=== PATIENT | female | born 1980 | race Caucasian/White ===

== ENCOUNTER 2020-03-13 15:21 | Emergency (ER) | payer OTHER, SELFPAY ==
--- NOTE | 2020-03-13 15:33 | ED.URI ---
HPI - URI/Sore Throat General Chief Complaint: Upper Respiratory Infection Stated Complaint: cough,sob Time Seen by Provider: 03/13/20 15:36 Source: patient and RN notes reviewed History of Present Illness HPI Narrative: Patient is a 39-year-old female who presents the urgent care with complaints of shortness of breath and cough. Patient states it started on February 21, she received a Covid test 2 days later, which was negative. Patient states that symptoms have not been improving and the cough seems to be worsening. States it is a wet but nonproductive cough. Patient reports of chest heaviness when she lays down at night with increased wheezing. Reports of having history of pneumonia with the last episode being within the physical year. Patient denies any recent fevers, nausea, vomiting. Denies of any sore throat. 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 No other acute complaints. No acute distress noted. Patient aware of the plan of care. Some parts of this dictation were generated by voice recognition software and may contain typographical and/or grammatical inaccuracies. Related Data Home Medications Medication Instructions Recorded Confirmed levonorgestrel [Mirena] 1 device INTRAUTERINE ONCE 03/13/20 03/13/20 Allergies Allergy/AdvReac Type Severity Reaction Status Date / Time Penicillins Allergy Hives Verified 03/13/20 15:43 Review of Systems Review of Systems: Narrative: CONSTITUTIONAL: Denies fever, chills, or sweats. EYES: Denies visual changes, redness, or discharge. ENT: Denies rhinorrhea, congestion, sore throat, or otalgia. CARDIOVASCULAR: Denies chest pain, palpitations, or edema. RESPIRATORY: Reports a wet nonproductive cough with intermittent dyspnea and chest tightness GASTROINTESTINAL: Denies abdominal pain, nausea, vomiting, or diarrhea. GENITOURINARY: Denies dysuria or hematuria. SKIN: Denies rash or itching. MUSCULOSKELETAL: Denies back pain, joint pain, or myalgia. NEUROLOGIC: Denies headache, numbness, or weakness. All other systems reviewed are negative, except as documented in HPI. PMFSH Comments At the time of my signature, I reviewed and agree with the nursing past medical, surgical, social, and family history. There is no relevant family history pertinent to the patient complaint. Exam Narrative: Exam Narrative: GENERAL: This is a well-nourished, well-developed patient, in no apparent distress. HEAD: normocephalic, atraumatic. EYES: PERRL. Sclera clear/white. Vision is grossly intact. EARS: External ears normal, auditory canals clear and without drainage, TMs normal without perforation. Hearing grossly intact. NOSE: External nose normal with no obvious nasal discharge, nares without redness, no rhinorrhea. THROAT: Mucous membranes moist, posterior pharynx clear. Mild bilateral tonsillar edema which is reported normal from the patient. Mild postnasal drainage. NECK: Neck supple, non-tender without lymphadenopathy CARDIOVASCULAR: Regular rate and rhythm without murmurs, gallops, or rubs. RESPIRATORY: Coarse/crackles throughout with inspiratory and expiratory bilateral bibasilar wheezes SKIN: warm, intact with no suspicious lesions or rash, good texture and turgor. NEURO: awake, alert, and oriented to person, place and time. There were no obvious focal neurologic abnormalities. EXTREMITIES: No clubbing, cyanosis, or edema. Course Vital Signs Vital signs: Vital Signs Temperature 98.7 F 03/13/20 15:40 Pulse Rate 86 03/13/20 15:40 Respiratory Rate 20 03/13/20 15:40 Blood Pressure 142/96 H 03/13/20 15:40 Pulse Oximetry 100 03/13/20 15:40 Temperature 98.7 F 03/13/20 15:40 Pulse Rate 86 03/13/20 15:40 Respiratory Rate 20 03/13/20 15:40 Blood Pressure 142/96 H 03/13/20 15:40 Pulse Oximetry 100 03/13/20 15:40 Reviewed?patient is informed that they may have pre-hypertension or hypertension ba
[2020-03-13 15:40] VITALS: BP 142/96; PULSE 86; RESP 20; TEMP 37.1; O2SAT 100
== END 2020-03-13 15:57 | disposition home or self-care (01) ==
PROVIDERS: Emergency Provider Nurse Practitioner Family
DX: J40 Bronchitis, not specified as acute or chronic (principal); R06.2 Wheezing; Z87.01 Personal history of pneumonia (recurrent)
CPT/HCPCS: 99203; G0463

== ENCOUNTER 2021-05-20 17:04 | Emergency (ER) | payer OTHER, SELFPAY ==
[2021-05-20 17:17] VITALS: BP 148/108; PULSE 95; RESP 16; TEMP 37.4; O2SAT 100
[2021-05-20 17:35] VITALS: BP 123/90
--- NOTE | 2021-05-20 17:35 | ED.GENADULT ---
HPI - General Adult General Chief complaint: Upper Respiratory Infection Stated complaint: Sore Throat Source: patient Mode of arrival: ambulatory Limitations: no limitations History of Present Illness HPI narrative: Patient is a 40-year-old female presents to the urgent care via POV for evaluation of Covid-like symptoms that began 5 days ago. Additionally, she reports sore throat, nasal congestion, and muffled hearing. Kalpana-[place] and Cepacol lozenges provide some relief. Nothing worsens symptoms. Patient reports she is fully vaccinated against Covid. She is also received Covid booster. Denies known exposure or sick contact. Of note, pt reports testing negative for covid this past Friday. Related Data Home Medications Medication Instructions Recorded Confirmed levonorgestrel [Mirena] 1 device INTRAUTERINE ONCE 03/13/20 05/20/21 levothyroxine 25 mcg PO DAILY 05/20/21 05/20/21 sumatriptan succinate 100 mg PO PRN PRN 05/20/21 05/20/21 Allergies Allergy/AdvReac Type Severity Reaction Status Date / Time Penicillins Allergy Mild Hives Verified 05/20/21 17:10 Review of Systems Review of Systems: Denies fever, chills, sweats, change in appetite, poor p.o. intake, headaches, dizziness, LOC, sinus pain, sinus pressure, ear pain, ear drainage, cough, shortness of breath, wheezing, nausea, vomiting, diarrhea, chest pain, heart palpitations PMFSH Comments I have reviewed and agree with the patient's past medical, surgical, social, and family hx as documented by the RN. There is no relevant family history pertinent to the presenting complaint. Course Course Level of Care: Express Care Visit Vital Signs Vital signs: Vital Signs Temperature 99.3 F 05/20/21 17:17 Pulse Rate 95 05/20/21 17:17 Respiratory Rate 16 05/20/21 17:17 Blood Pressure 148/108 H 05/20/21 17:17 Pulse Oximetry 100 05/20/21 17:17 Temperature 99.3 F 05/20/21 17:17 Pulse Rate 95 05/20/21 17:17 Respiratory Rate 16 05/20/21 17:17 Blood Pressure 123/90 05/20/21 17:35 Pulse Oximetry 100 05/20/21 17:17 Due to an elevated blood pressure, I had a detailed discussion with the patient and/or guardian regarding the need for follow-up with their primary care provider within the next 3-4 days. Patient verbalized understanding and agreed. Medical Decision Making Differential Diagnosis Differential Diagnosis: Allergic rhinitis, ABRS, acute viral sinusitis, strep pharyngitis, nasopharyngitis, bronchitis, pneumonia, AOM, otitis externa, viral URI, influenza, covid-19 Medical Records Medical records reviewed: Yes I reviewed the external patient's medical records. Vital Signs Vital Signs: Vital Signs Temperature 99.3 F 05/20/21 17:17 Pulse Rate 95 05/20/21 17:17 Respiratory Rate 16 05/20/21 17:17 Blood Pressure 148/108 H 05/20/21 17:17 Pulse Oximetry 100 05/20/21 17:17 Temperature 99.3 F 05/20/21 17:17 Pulse Rate 95 05/20/21 17:17 Respiratory Rate 16 05/20/21 17:17 Blood Pressure 123/90 05/20/21 17:35 Pulse Oximetry 100 05/20/21 17:17 Lab Data Lab results reviewed: Yes I reviewed the patient's lab results. Lab results narrative: Rapid strep negative Labs: Lab Results 05/20/21 Range/Units 17:40 POC SARS CoV-2 Ag Positive (Negative) Strep Screen Presumptive Negative *(Reference Range: Negative)* Critical Care Time Critical Care Time Critical Care Time: No Discharge Plan Discharge Clinical Impression: COVID-19 Patient Disposition: Home, Self-Care Condition: Stable Instructions: COVID-19 (Coronavirus Disease 2019) (ED) Additional Instructions: See discharge instructions for detailed information. Be sure to stay home for 5 days. Wear a mask for an additional 5 days. If symptoms worsen or you develop fever continue to stay home until symptoms improve or fever resolves. Do not take [id number]
== END 2021-05-20 18:04 | disposition home or self-care (01) ==
PROVIDERS: Emergency Provider Nurse Practitioner Family
DX: U07.1 COVID-19 (principal); E03.9 Hypothyroidism, unspecified
CPT/HCPCS: 87081; 87426; 87880; 99213; C9803; G0463

== ENCOUNTER 2022-08-11 17:59 | Emergency (ER) | payer OTHER, SELFPAY ==
[2022-08-11 18:14] VITALS: BP 108/61; PULSE 104; RESP 18; TEMP 37.9; O2SAT 100
--- NOTE | 2022-08-11 18:44 | ED.URI ---
HPI - URI/Sore Throat General Chief Complaint: Upper Respiratory Infection Stated Complaint: Sore Throat Time Seen by Provider: 08/11/22 18:30 Source: patient and RN notes reviewed Mode of arrival: ambulatory Limitations: no limitations History of Present Illness HPI Narrative: The patient presents today complaining of severe sore throat and body aches since 4:30 p.m. yesterday. Denies any additional symptoms to include cough, rhinorrhea, congestion, fever. She currently rates her pain 8/10 and has tried Kalp[place] cold without much relief. 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 Related Data Home Medications Medication Instructions Recorded Confirmed levonorgestrel 21 mcg/24 hours (8 1 device intrauterine ONCE 03/13/20 08/11/22 yrs) 52 mg intrauterine device (Mirena) levothyroxine 25 mcg tablet 25 mcg PO DAILY 05/20/21 08/11/22 sumatriptan succinate 100 mg tablet 100 mg PO PRN PRN Migraine Headache 05/20/21 08/11/22 dextroamphetamine-amphetamine 30 30 mg PO DAILY 08/11/22 08/11/22 mg tablet ustekinumab 90 mg/mL subcutaneous See Rx Instructions .Route .COMPLEX 08/11/22 08/11/22 syringe (Stelara) Allergies Allergy/AdvReac Type Severity Reaction Status Date / Time Penicillins AdvReac Mild Hives Verified 08/11/22 18:28 Review of Systems Review of Systems: CONSTITUTIONAL: Denies fever, chills, or sweats.+ body aches EYES: Denies visual changes, redness, or discharge. ENT: Denies rhinorrhea, congestion, or otalgia.+ sore throat CARDIOVASCULAR: Denies chest pain, palpitations, or edema. RESPIRATORY: Denies cough or dyspnea. GASTROINTESTINAL: Denies abdominal pain, nausea, vomiting, or diarrhea. GENITOURINARY: Denies dysuria or hematuria. SKIN: Denies rash, itching, or wounds. MUSCULOSKELETAL: Denies back pain, joint pain, or myalgia. NEUROLOGIC: Denies headache, numbness, tingling, or weakness. PSYCH: Denies depression or anxiety. [facility] Past Medical History Medical History (Updated 08/11/22 @ 18:51 by Liana Osuna, JIGGER ARTISAN, ) Psoriasis Comments At time of signature, I have reviewed and agree with nursing past medical, surgical, social and family history unless otherwise noted. Please see nursing chart for further information. There is no relevant family history pertinent to the presenting complaint Exam Narrative: GENERAL: Mildly ill-appearing, well-nourished, and in no acute distress. HEAD: Normocephalic, atraumatic. EYES: EOMI. No redness or drainage. Conjunctivae normal. ENT: Mucous membranes pink and moist. Nares clear. No rhinorrhea. TMs normal bilaterally. Throat erythematous. Tonsils 3+ with small amount of white exudate. Uvula midline. NECK: Normal AROM. Supple. Bilateral tonsillar lymphadenopathy. CHEST: No respiratory distress. Clear to auscultation. HEART: Regular rate and rhythm. No murmur appreciated. Normal peripheral pulses. EXTREMITIES: Normal range of motion. No edema. SKIN: Warm, dry, no rash. Capillary refill normal. Normal skin turgor. NEURO: No focal deficits. Alert and oriented x3. Gait steady. PSYCH: Normal affect. No signs of depression or anxiety. Course Course Level of Care: Express Care Visit Vital Signs Vital signs: Vital Signs Temperature 100.3 F H 08/11/22 18:14 Pulse Rate 104 H 08/11/22 18:14 Respiratory Rate 18 08/11/22 18:14 Blood Pressure 108/61 08/11/22 18:14 Pulse Oximetry 100 08/11/22 18:14 Oxygen Delivery Room Air 08/11/22 18:14 Temperature 100.3 F H 08/11/22 18:14 Pulse Rate 104 H 08/11/22 18:14 Respiratory Rate 18 08/11/22 18:14 Blood Pressure 108/61 08/11/22 18:14 Pulse Oximetry 100 08/11/22 18:14 Oxygen Delivery Room Air 08/11/22 18:14 Reviewed MDM - URI/Sore Throat MDM Narrative Medical decision making narrative: Rapid strep positive. Prescription for Keflex and prednisone sent to pharmacy. Anticipatory guidance given. Differential Diagnosis Differential diagnosi
== END 2022-08-11 18:53 | disposition home or self-care (01) ==
PROVIDERS: Emergency Provider Nurse Practitioner
DX: J02.0 Streptococcal pharyngitis (principal); L40.9 Psoriasis, unspecified
CPT/HCPCS: 87880; 99213; G0463

== ENCOUNTER 2023-03-10 17:42 | Emergency (ER) | payer OTHER, SELFPAY ==
[2023-03-10 17:57] VITALS: BP 134/86; PULSE 86; RESP 18; TEMP 36.4; O2SAT 98
--- NOTE | 2023-03-10 17:57 | ED.URI ---
HPI - URI/Sore Throat General Chief Complaint: Upper Respiratory Infection Stated Complaint: cough Time Seen by Provider: 03/10/23 17:57 Source: patient Mode of arrival: ambulatory Limitations: no limitations History of Present Illness HPI Narrative: 42-year-old female presented for complaint of cough. Onset yesterday. Endorses upper chest feels like it is burning and states it feels hard to take a full deep breath. She denies associated body aches, nausea, vomiting, diarrhea, fevers or chills. Taking multiple otc meds with no relief. Related Data Home Medications Medication Instructions Recorded Confirmed levothyroxine 25 mcg tablet 25 mcg PO DAILY 05/20/21 03/10/23 sumatriptan succinate 100 mg tablet 100 mg PO PRN PRN Migraine Headache 05/20/21 03/10/23 dextroamphetamine-amphetamine 30 30 mg PO DAILY 08/11/22 03/10/23 mg tablet ustekinumab 90 mg/mL subcutaneous See Rx Instructions .Route .COMPLEX 08/11/22 03/10/23 syringe (Stelara) Allergies Allergy/AdvReac Type Severity Reaction Status Date / Time Penicillins AdvReac Mild Hives Verified 08/11/22 18:28 Review of Systems Review of Systems: CONSTITUTIONAL: Endorses fatigue Denies body aches, fever, chills, or sweats. EYES: Denies visual changes, redness, or discharge. ENT: Denies rhinorrhea, congestion, sore throat, or otalgia. CARDIOVASCULAR: Denies chest pain, palpitations, or edema. RESPIRATORY: Reports cough, wheezing. GASTROINTESTINAL: Denies abdominal pain, nausea, vomiting, or diarrhea. GENITOURINARY: Denies dysuria or hematuria. SKIN: Denies rash, itching, or wounds. MUSCULOSKELETAL: Denies back pain, joint pain, or myalgia. NEUROLOGIC: Denies headache, numbness, tingling, or weakness. All systems reviewed & are unremarkable except as noted in HPI and below PMFSH Past Medical History Medical History Psoriasis Comments At time of signature, I have reviewed and agree with nursing past medical, surgical, social and family history unless otherwise noted. Please see nursing chart for further information. There is no relevant family history pertinent to the presenting complaint Exam Narrative: GENERAL: Well-appearing, in no acute distress. EYES: EOMI. No redness or drainage. Conjunctivae normal. ENT: Mucous membranes pink and moist. No rhinorrhea. TMs normal bilaterally. Throat normal. Uvula midline. NECK: Normal AROM. Supple. CHEST: No respiratory distress, speaks full sentences. Frequent cough. Expiratory Wheezing to all mathew. HEART: Regular rate and rhythm. No murmur appreciated. ABDOMEN: Soft, nontender, nondistended, normal active bowel sounds. EXTREMITIES: Normal range of motion. No edema. SKIN: Warm, dry, no rash. Capillary refill normal. Normal skin turgor. NEURO: Alert and oriented x3. Gait steady. PSYCH: Normal affect. Course Course Emergency Course: Patient is aware of diagnosis, understands and agrees to treatment plan. Anticipatory guidance given. Patient agrees to follow-up as directed and is aware of reasons to seek care at the emergency department. Portions of this record may have been created with voice recognition software Level of Care: Express Care Visit Vital Signs Vital signs: Vital Signs Temperature 97.6 F 03/10/23 17:57 Pulse Rate 86 03/10/23 17:57 Respiratory Rate 18 03/10/23 17:57 Blood Pressure 134/86 03/10/23 17:57 Pulse Oximetry 98 03/10/23 17:57 Oxygen Delivery Room Air 03/10/23 17:57 Temperature 97.6 F 03/10/23 17:58 Pulse Rate 86 03/10/23 17:58 Respiratory Rate 18 03/10/23 17:58 Blood Pressure 134/86 03/10/23 17:58 Pulse Oximetry 98 03/10/23 17:58 Oxygen Delivery Room Air 03/10/23 17:58 MDM - URI/Sore Throat MDM Narrative Medical decision making narrative: Results of neg COVID and flu reviewed with patient. Ow sat 98% RA. Discussed physical exam findings c/w bronchit
[2023-03-10 17:58] VITALS: BP 134/86; PULSE 86; RESP 18; TEMP 36.4; O2SAT 98
== END 2023-03-10 18:31 | disposition home or self-care (01) ==
PROVIDERS: Emergency Provider Nurse Practitioner Family
DX: J40 Bronchitis, not specified as acute or chronic (principal); Z79.899 Other long term (current) drug therapy; Z20.822 Contact with and (suspected) exposure to COVID-19
CPT/HCPCS: 87426; 87804; 99213; C9803; G0463